=== PATIENT | male | born 1930 | race Caucasian/White ===

== ENCOUNTER 2017-08-16 10:28 | Day surgery (SDC) | payer OTHER ==
[2017-08-14 14:42] VITALS: BMI 28.1
[~2017-08-16 10:28] MED LIST: ACETAMINOPHEN 325 MG TABLET (FP) PO PRN; PHENYLEPHRINE/KETOROLAC 4 ML VIAL IO ONE
[2017-08-16] MEDS ORDERED: TROPICAMIDE 1% OPHTH SOLN 15 ML BOTTLE ONE (10:52)
[2017-08-16] MEDS ORDERED: PHENYLEPHRINE 2.5% OPHTH SOLN 15 ML BOTTLE ONE (10:52)
[2017-08-16] MEDS ORDERED: CYCLOPENTOLATE HCL 1% OPHTH SOLN 2 ML BOTTLE ONE (10:52)
[2017-08-16] MEDS ORDERED: CIPROFLOXACIN 0.3% EYE DROPS 5 ML BOTTLE ONE (10:52)
[2017-08-16] MEDS ORDERED: FLURBIPROFEN 0.03% OPHTH SOLN 2.5 ML BOTTLE ONE (10:52)
[2017-08-16] MEDS: CIPROFLOXACIN HCL 0.3% OPHTH 2.5ML BOTTLE OP SCH ×3 (11:00→11:11)
[2017-08-16] MEDS: CYCLOPENTOLATE HCL 1% OPHTH SOLN 2 ML BOTTLE OP SCH ×3 (11:01→11:11)
[2017-08-16] MEDS: PHENYLEPHRINE 2.5% OPHTH SOLN 15 ML BOTTLE OP SCH ×3 (11:01→11:11)
[2017-08-16] MEDS: FLURBIPROFEN 0.03% OPHTH SOLN 2.5 ML BOTTLE OP SCH ×3 (11:01→11:11)
[2017-08-16] MEDS: TROPICAMIDE 1% OPHTH SOLN 15 ML BOTTLE OP SCH ×3 (11:01→11:11)
[2017-08-16 11:05] VITALS: TEMP 97.2
[2017-08-16] MEDS ORDERED: MIDAZOLAM HCL 2 MG/2 ML SINGLE DOSE VIAL ONE (11:47)
[2017-08-16] MEDS ORDERED: TETRACAINE 0.5% OPHTH SOLN 2 ML BOTTLE OS ONE (11:51)
[2017-08-16] MEDS ORDERED: TRYPAN BLUE 0.5 ML DISP.SYRIN ONE (12:10)
[2017-08-16] MEDS ORDERED: POVIDONE-IODINE 5% OPHTHALMIC PREP 30 ML SOLUTION OS ONE (12:12)
[2017-08-16] MEDS ORDERED: TRYPAN BLUE 0.5 ML DISP.SYRIN IO ONE ×2 (12:19)
[2017-08-16] MEDS ORDERED: BSS (NA/CA/MG/K) BALANCED SALT SOLUTION OPHTH SOLN 15 ML BOTTLE OS ONE (12:19)
[2017-08-16] MEDS ORDERED: LIDOCAINE HCL 1% PRESERVATIVE FREE - 30ML VIAL IO ONE (12:19)
[2017-08-16] MEDS ORDERED: CHONDROITIN SU A/HYALUR SOD 1 KIT IO ONE (12:19)
[2017-08-16] MEDS ORDERED: PHENYLEPHRINE/KETOROLAC 4 ML VIAL IO ONE (12:19)
[2017-08-16] MEDS ORDERED: ACETAMINOPHEN 325 MG TABLET (FP) ONE (13:25)
[2017-08-16 16:29] VITALS: BP 150/75; PULSE 80
--- NOTE | 2017-08-16 22:00 | OP ---
DATE OF OPERATION: 08/16/2017 PREOPERATIVE DIAGNOSIS: Cataract, left eye. ASSOCIATED DIAGNOSES: 1. Persistent miosis. 2. Flomax user. POSTOPERATIVE DIAGNOSIS: Cataract, left eye. 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 PROCEDURES: Phacoemulsification of left cataract with capsule staining trypan blue, iris hooks, and posterior chamber intraocular lens implantation. The lens used: SN60WF 18.5 diopter power, serial number [id number]. ANESTHESIA: Topical, MAC. COMPLICATIONS: None. DESCRIPTION OF PROCEDURE: The patient was brought to the operating room and correctly identified along with the operative site as well as correct intraocular lens whitman. He was then prepped and draped in the usual sterile fashion including 5% Betadine solution into the conjunctival sac and an eyelid drape. An eyelid speculum was then placed into the left eye. The pupil was inspected and noted to measure about 4.5 to 5 mm. A paracentesis port was created, and intracameral lidocaine was given as well as some BSS fluid which previously had had Omidria added to it. The pupil still did not expand. The decision then was made to stain the capsule with trypan blue and then place viscoelastic inside the eye. Four additional paracentesis ports were created, and iris hooks were used to expand the pupil. A temporal clear cornea wound was created, and continuous circular capsulorrhexis was performed. The nucleus was then hydrodissected with BSS and removed with phacoemulsification via [id number] approach. The remaining cortical material was irrigated and aspirated from the eye. Viscoelastic was injected to inflate the capsular bag. The lens was injected into the capsular bag. The iris hooks were then removed, and the viscoelastic irrigated and aspirated from the eye. All wounds were then tested and found to be watertight. The intraocular lens noted to be well covered by the anterior capsule border. No sutures were placed. Topical vancomycin given and the eye patched and shielded and the patient discharged from the operating room in a stable condition. JOSE ZAPATA M.D. [id number]
== END 2017-08-16 14:00 | disposition home or self-care (01) ==
LOC: JASU-SURG 10:28
PROVIDERS: ATTEND Ophthalmology
PROC: 08RK3JZ Replacement of Left Lens with Synthetic Substitute, Percutaneous Approach (ICD-10-PCS; principal; 2017-08-16 12:00)
DX: H26.9 Unspecified cataract (principal); H57.03 Miosis
CPT/HCPCS: 82962; C9447

== ENCOUNTER 2017-08-30 09:41 | Day surgery (SDC) | payer OTHER ==
[2017-08-28 19:02] VITALS: BMI 28.1
[~2017-08-30 09:41] MED LIST changes: -PHENYLEPHRINE/KETOROLAC 4 ML VIAL IO ONE
[2017-08-30] MEDS ORDERED: TROPICAMIDE 0.5% OPHTHALMIC SOLN 15 ML BOTTLE ONE (09:52)
[2017-08-30] MEDS ORDERED: CIPROFLOXACIN 0.3% EYE DROPS 5 ML BOTTLE ONE (09:53)
[2017-08-30] MEDS ORDERED: CYCLOPENTOLATE HCL 1% OPHTH SOLN 2 ML BOTTLE ONE (09:53)
[2017-08-30] MEDS ORDERED: PHENYLEPHRINE 2.5% OPHTH SOLN 15 ML BOTTLE ONE (09:53)
[2017-08-30] MEDS ORDERED: FLURBIPROFEN 0.03% OPHTH SOLN 2.5 ML BOTTLE ONE (09:59)
[2017-08-30] MEDS: PHENYLEPHRINE 2.5% OPHTH SOLN 15 ML BOTTLE OP SCH ×3 (10:01→10:11)
[2017-08-30] MEDS: CYCLOPENTOLATE HCL 1% OPHTH SOLN 2 ML BOTTLE OP SCH ×3 (10:01→10:11)
[2017-08-30] MEDS: CIPROFLOXACIN HCL 0.3% OPHTH 2.5ML BOTTLE OP SCH ×3 (10:01→10:11)
[2017-08-30] MEDS: FLURBIPROFEN 0.03% OPHTH SOLN 2.5 ML BOTTLE OP SCH ×3 (10:01→10:11)
[2017-08-30] MEDS: TROPICAMIDE 1% OPHTH SOLN 15 ML BOTTLE OP SCH ×3 (10:01→10:11)
[2017-08-30 10:28] VITALS: TEMP 98.4
[2017-08-30] MEDS ORDERED: MIDAZOLAM HCL 2 MG/2 ML SINGLE DOSE VIAL ONE (11:03)
[2017-08-30] MEDS ORDERED: TETRACAINE 0.5% OPHTH SOLN 2 ML BOTTLE OD ONE (11:13)
[2017-08-30] MEDS ORDERED: POVIDONE-IODINE 5% OPHTHALMIC PREP 30 ML SOLUTION OD ONE (11:14)
[2017-08-30] MEDS ORDERED: CHONDROITIN SU A/HYALUR SOD 1 KIT IO ONE (11:22)
[2017-08-30] MEDS ORDERED: TRYPAN BLUE 0.5 ML DISP.SYRIN IO ONE (11:22)
[2017-08-30] MEDS ORDERED: BSS (NA/CA/MG/K) BALANCED SALT SOLUTION OPHTH SOLN 15 ML BOTTLE OD ONE (11:22)
[2017-08-30] MEDS ORDERED: LIDOCAINE HCL 1% PRESERVATIVE FREE - 30ML VIAL IO ONE (11:22)
[2017-08-30] MEDS ORDERED: EPINEPHrine/PF 1 MG/1 ML (1:1,000) AMPULE IO ONE (11:33)
[2017-08-30 12:59] VITALS: BP 144/64; PULSE 72
--- NOTE | 2017-08-30 15:38 | OP ---
DATE OF OPERATION: PREOPERATIVE DIAGNOSIS: Cataract, right eye. ASSOCIATED DIAGNOSES: 1. Persistent miosis. 2. Intraoperative floppy iris syndrome. PROCEDURE: Phacoemulsification of right cataract with capsule staining with trypan blue and capsule expansion with iris hook and posterior chamber intraocular lens implantation. LENS USED: SN60WF, 19.0 diopter power, serial number [id number]. ANESTHESIA: Topical, MAC. COMPLICATIONS: None. DESCRIPTION OF PROCEDURE: The patient was brought to the operating room and correctly identified along with the operative site as well as correct intraoperative lens power. She was then prepped and draped in the usual sterile fashion, including 5% Betadine solution in conjunctival sac and eyelid drape. An eyelid speculum was then placed into the right eye. The pupil was inspected, measured approximately 5 mm. As the patient had intraoperative floppy iris syndrome during his last cataract, decision was made to use iris hooks. A paracentesis port was created, and intracameral lidocaine, 0.5 mL of 1% preservative-free lidocaine was given intracamerally. The capsule was then stained with trypan blue air bubble and replaced with the remaining 0.5 mL of the preservative-free lidocaine. Viscoelastic was injected to inflate the anterior chamber, and a temporal clear corneal wound was created. Four additional paracentesis ports were created, and iris hooks were placed into the eye to expand the pupil. A continuous circular capsulorrhexis was performed. The nucleus was then hydrodissected and removed with phacoemulsification using [id number] approach. The remaining cortical material was irrigated and aspirated from the eye. Viscoelastic was injected to inflate the capsular bag, and the lens was injected into the capsular bag. The iris hooks were then removed and the Viscoelastic was irrigated and aspirated from the eye. After this was performed, the iris was noted to be very floppy; however, there was no prolapse to any of the wounds. All wounds were then stromal hydrated and tested and found to be watertight. At the end of the procedure, the intraocular lens was noted to be well centered. The pupil was nice and round. There was no leakage, and topical vancomycin given, the eye patched and shielded and the patient discharged from the operating room in a stable condition. JOSE ZAPATA M.D. [id number]
== END 2017-08-30 13:03 | disposition home or self-care (01) ==
LOC: JASU-SURG 09:41
PROVIDERS: ATTEND Ophthalmology
PROC: 08RJ3JZ Replacement of Right Lens with Synthetic Substitute, Percutaneous Approach (ICD-10-PCS; principal; 2017-08-30 11:00)
DX: H26.9 Unspecified cataract (principal); H57.03 Miosis; H21.81 Floppy iris syndrome
CPT/HCPCS: 82962